=== PATIENT | male | born 1980 | race Two or more races ===

== ENCOUNTER 2017-05-21 21:11 | Emergency (ER) | payer SELFPAY ==
[~2017-05-21] VITALS: Ht 177.8 cm; Wt 75.0 kg
[2017-05-22] MEDS ORDERED: IPRATROPIUM/ALBUTEROL 0.5-3(2.5)MG/3ML NEB HHN ONE (02:45)
[2017-05-22 03:40] VITALS: BP 124/80
== END 2017-05-22 05:16 | disposition home or self-care (01) ==
LOC: ER 21:11
DX: J40 Bronchitis, not specified as acute or chronic (principal); F12.10 Cannabis abuse, uncomplicated; F17.200 Nicotine dependence, unspecified, uncomplicated
CPT/HCPCS: 71010; 93005; 94640; 99284; J7620